=== PATIENT | female | born 1995 | race African-American/Black ===

== ENCOUNTER 2016-08-11 09:03 | Emergency (ER) | payer OTHER ==
[~2016-08-11] VITALS: Ht 170.2 cm; Wt 99.8 kg
[~2016-08-11 09:03] MED LIST: AUGMENTIN 875-1 EACH PO; DOXYCYCLINE HY100 M2 PO; PERCOCET 5-3251 EACH PO
--- NOTE | 2016-08-11 09:18 | ED GENERAL ADULT ---
History of Present Illness General Chief Complaint: General Adult Stated Complaint: CELIA GREEN AFTER TAKING ALEVE THIS MORNING Source: patient Exam Limitations: no limitations Vital Signs & Intake/Output Vital Signs & Intake/Output Vital Signs Date Time Temp Pulse Resp B/P Pulse O2 O2 Flow FiO2 Ox Delivery Rate 08/11 0926 126/68 08/11 0909 96.6 101 18 160/89 97 Room Air Allergies Coded Allergies: No Known Allergies (05/12/16) Reconcile Medications Amoxicillin/Potassium Clav (Augmentin 875-125 Tablet) 875 MG-125 MG TABLET 1 TAB PO BID CELLULITIS Doxycycline Hyclate 100 MG CAPSULE 1 CAP PO BID ANTIBIOTIC, INFECTION ( Reported) Oxycodone HCl/Acetaminophen (Percocet 5-325 MG Tablet) 5 MG-325 MG TABLET 1 TAB PO Q4-6 PRN PAIN Triage Note: 21 Y/O FEMALE C/O FEELING DIZZY SINCE WAKING YESTERDAY MORNING. TOOK 6 TABS ALEVE FROM 0800 YESTERDAY TO BEDTIME LAST NIGHT AND IS WORRIED SHE TOOK TOOK TOO MUCH. C/O INTERMITTENT HEADACHE. DENIES N/V/D. NORMAL APPETITE/PO INTAKE PER PT. AFEBRILE. Triage Nurses Notes Reviewed? yes Onset: Abrupt Duration: day(s): (1) Timing: single episode today Injury Environment: home Severity: mild No Modifying Factors: none Associated Symptoms: lightheadedness : No Patient currently breastfeeds: No HPI: This is a 21-year-old female who presents with some shakiness and lightheadedness after taking Aleve throughout the day yesterday. She states she took approximately 6 pills from 7:30 AM until the evening. No abdominal pain or discomfort. She states initially the morning she was having little bit of headache and nausea. She admits to drinking 3 cups of headache C mixed in with red bull throughout the day with a friend. She thought that everything was fine but wanted to make sure this morning. Patient denies drinking on a regular basis. She states she doesn't know why she was drinking but was doing so at home with a friend. Denies any drug use. Denies any chance of . She essentially active but uses protection and has recently had the dental implanted. No chest pain or palpitations. No cough or shortness of breath. Family history of hypertension. Past History Travel History Traveled to [place] past 21 day No Medical History Any Pertinent Medical History? see below for history Neurological: NONE EENT: NONE Cardiovascular: NONE Respiratory: NONE Gastrointestinal: NONE Hepatic: NONE Renal: NONE Musculoskeletal: NONE Psychiatric: NONE Endocrine: NONE Blood Disorders: NONE Cancer(s): NONE Surgical History Surgical History: non-contributory Psychosocial History What is your primary language Faroese Tobacco Use: Never used Family History Hx Contributory? No Review of Systems Review of Systems Constitutional: Denies: chills, fever. EENTM: Reports: no symptoms. Respiratory: Denies: cough, short of breath. Cardiovascular: Denies: chest pain, palpitations. GI: Reports: nausea. Denies: abdominal pain, vomiting. Genitourinary: Reports: no symptoms. Musculoskeletal: Reports: no symptoms. Skin: Reports: no symptoms. Neurological/Psychological: Reports: see HPI (SHAKINESS), anxiety. Hematologic/Endocrine: Denies: bruising, bleeding, polyuria, polydipsia. Immunologic/Allergic: Reports: no symptoms. All Other Systems: Reviewed and Negative Physical Exam Physical Exam General Appearance: well developed/nourished, alert, awake, anxious, mild distress, obese Head: atraumatic Eyes: Bilateral: normal appearance, PERRL, EOMI. Ears, Nose, Throat: normal pharynx, hearing grossly normal Neck: normal inspection, supple, full range of motion Respiratory: normal breath sounds, chest non-tender, no respiratory distress Cardiovascular: regular rate/rhythm Peripheral Pulses: 2+ radial (R), 2+ radial (L) Gastrointestinal: normal bowel sounds, soft, non-tender Extremities: normal inspection, normal capillary refill, normal range of motion, no edema Neurologic/Psych: no motor/sensory deficits, awake, alert, normal gait Core Measures ACS in differential dx? No CVA/TIA Diagnosis: No Severe Sepsis Present: No Septic Shock Present: No Progress Differential Diagnoses I considered the following diagnoses in my evaluation of the patient: [ELEVATED BLOOD PRESSURE, REACTION TO DRINKING LIQUOR WITH RED BULL, HANGOVER] Plan of Care: manual bp 126/68 Patient advised to avoid Patricia and red bull especially in combination. She will monitor her blood pressure outpatient over the next few weeks and follow up with her doctor in the office. Initial ED EKG: none Departure Departure Time of Disposition: 924 Disposition: HOME OR SELF CARE Condition: Stable Clinical Impression Primary Impression: Shakiness Referrals: PATIENT HAS NO PRIMARY CARE DR (PCP/Family) Additional Instructions: Avoid drinking alcohol especially in combination with red bull. Please check your blood pressure outpatient over the next few weeks. Follow-up with your doctor in the office for any concerns. Return as needed. Departure Forms: Customer Survey General Discharge Information Critical Care Note Critical Care Note Critical Care Time: non-applicable
[2016-08-11 09:26] VITALS: BP 126/68
== END 2016-08-11 09:28 ==
LOC: ERH 09:03
DX: R25.1 Tremor, unspecified (principal); R42 Dizziness and giddiness
CPT/HCPCS: 99282

== ENCOUNTER 2016-12-07 22:59 | Emergency (ER) | payer OTHER ==
[~2016-12-07] VITALS: Ht 170.2 cm; Wt 108.9 kg
[2016-12-07 23:02] VITALS: BP 124/79
--- NOTE | 2016-12-08 00:06 | ED GI/GU/ABDOMINAL COMPLAINT ---
History of Present Illness General Chief Complaint: Nausea, Vomiting, Diarrhea Stated Complaint: VOMITING,ABD PAIN, REDDNESS AROUND EYES Source: patient, old records Exam Limitations: no limitations Vital Signs & Intake/Output Vital Signs & Intake/Output Vital Signs Date Time Temp Pulse Resp B/P B/P Pulse O2 O2 Flow FiO2 Mean Ox Delivery Rate 12/07 2302 97.3 90 18 124/79 98 Room Air ED Intake and Output 12/08 0000 12/07 1200 Intake Total Output Total Balance Patient 240 lb Weight Weight Reported by Patient Measurement Method Allergies Coded Allergies: No Known Allergies (05/12/16) Reconcile Medications Amoxicillin/Potassium Clav (Augmentin 875-125 Tablet) 875 MG-125 MG TABLET 1 TAB PO BID CELLULITIS Doxycycline Hyclate 100 MG CAPSULE 1 CAP PO BID ANTIBIOTIC, INFECTION ( Reported) Famotidine (Pepcid) 20 MG TABLET 1 TAB PO BID PRN PAIN Ondansetron (Zofran Odt) 4 MG TAB.RAPDIS 1 TAB SL TID PRN NAUSEA Oxycodone HCl/Acetaminophen (Percocet 5-325 MG Tablet) 5 MG-325 MG TABLET 1 TAB PO Q4-6 PRN PAIN Triage Note: PT TO TRIAGE WITH C/O LUQ ABD PAIN 6/10 ON/OFF, NAUSEA, 1 EPISODE OF VOMITING, AND BROKE UP IN FACIAL RASH S/P VOMITING AROUND 1PM. LAST NORMAL BM YESTERDAY. VSS. PT AFEBRILE. PT ON DEPO BIRHT CONTROL. Triage Nurses Notes Reviewed? yes LMP (ages 10-50): 2 WEEKS AGO ? N Is pt currently ? No Onset: Abrupt Duration: hour(s): (11), intermittent Timing: recent history Quality/Severity: aching, burning Severity Numbers: 5 Location: left upper quadrant Radiation: no radiation Activities at Onset: eating ([employer]) No Modifying Factors: none Associated Symptoms: nausea/vomiting (X 1) HPI: 21-year-old female with no medical history presents to ER for evaluation complaining of intermittent sharp left upper quadrant abdominal pain since 1:30 today after eating [employer]. She states she ate the calyces vomited once and the pain began to left upper quadrant. Pain is nonradiating she took Aleve without improvement and attempted to eat some soup around 8:30 this evening however states she had no appetite. She denies any change in her bowel movements no diarrhea. Her last menstrual cycle was 2 weeks ago normal she denies any dysuria urgency frequency no sick contacts or recent travel or antibiotic use no fever or chills. She denies tobacco alcohol or drug use. (SOBEIDA VEGA) Past History Travel History Traveled to [place] past 21 day No Medical History Any Pertinent Medical History? none Neurological: NONE EENT: NONE Cardiovascular: NONE Respiratory: NONE Gastrointestinal: NONE Hepatic: NONE Renal: NONE Musculoskeletal: NONE Psychiatric: NONE Endocrine: NONE Blood Disorders: NONE Cancer(s): NONE Surgical History Surgical History: non-contributory Psychosocial History What is your primary language Setswana Tobacco Use: Never used Family History Hx Contributory? No (SOBEIDA VEGA) Review of Systems Review of Systems Constitutional: Reports: see HPI. All Other Systems: Reviewed and Negative Comments Review of systems: See HPI, All other systems negative. Constitutional, no chills no fever, no malaise HEENT: no sore throat no congestion Cardiovascular: No chest pain , no palpitation Skin: no rashes, no change in skin Respiratory: No dyspnea no cough no sputum GI: nausea vomiting, no diarrhea, no bloating/constipation : No dysuria No hematuria, no frequency, no discharge Muscle skeletal: No joint pain, no joint swelling, no back pain, no neck pain, Neurologic: No numbness , no headache Psych: No stress Heme/endocrine: No bruising no bleeding Immunology: No lymphadenopathy (SOBEIDA VEGA) Physical Exam Physical Exam General Appearance: well developed/nourished, no apparent distress, alert Gastrointestinal: soft, tenderness (LUQ) Comments: Well-developed well-nourished person in no acute distress HEENT: Normal EENT exam; PERRL, EOMI, HEAD is atraumatic. moist mucous membranes. Neck: Supple, normal range of motion Back: Nontender, no CVA tenderness. Full range of motion Cardiovascular: Regular rate and rhythms no murmurs rubs Respiratory: No respiratory distress. Patient speaking in full complete sentences. Breath sounds clear to auscultation bilaterally: NO W/R/R Abdomen: Soft, LUQ tender Rest of abd is nontender, neg murphys sign, nondistended, no appreciable organomegaly. Normal bowel sounds. No rebound/ guarding, Extremity: No edema, full range of motion of extremities Neuro: Alert oriented x3, motor sensory normal. There were no obvious focal neurologic abnormalities. Skin: No appreciable rash on exposed skin, skin is warm and dry. Psych: Mood and affect is normal, memory and judgment is normal. Core Measures ACS in differential dx? No Severe Sepsis Present: No Septic Shock Present: No (RENEE MENDEZ,SOBEIDA) Progress Differential Diagnosis: appendicitis, biliary colic, bowel obstruction, colon cancer, cholecystitis, ectopic , gastritis, hepatitis, inflamm bowel dis, intrauterine , kidney stone, ovarian cyst, pancreatitis, PID/ cervicitis, perforated viscous, SBO, threatened AB, UTI/pyelo Plan of Care: Orders Procedure Date/time Status LIPASE 12/08 0002 Active HUMAN BETA HCG SCREEN 12/08 1 Active COMPREHENSIVE METABOLIC PANEL 12/08 0002 Active CBC WITHOUT DIFFERENTIAL 12/08 0002 Complete AMYLASE 12/08 0002 Active Current Medications Sig/Sarita Start time Last Medication Dose Stop Time Status Admin Famotidine 20 MG ONCE ONE 12/08 114 UNVr (Pepcid) 12/09 115 Ibuprofen 800 MG ONCE ONE 12/08 114 UNVr (Motrin) 12/09 115 Metoclopramide HCl 10 MG ONCE ONE 12/08 114 UNVr (Reglan) 12/09 115 Laboratory Tests 12/08/16 0025: Sodium Pending, Potassium Pending, Chloride Pending, Carbon Dioxide Pending, Anion Gap Pending, BUN Pending, Creatinine Pending, BUN/Creatinine Ratio Pending , Glucose Pending, Calcium Pending, Total Bilirubin Pending, AST Pending, ALT Pending, Alkaline Phosphatase Pending, Total Protein Pending, Albumin Pending, Globulin Pending, Albumin/Globulin Ratio Pending, Amylase Pending, Lipase Pending, Total Beta HCG NEGATIVE, CBC w Diff NO MAN DIFF REQ, RBC 4.56, MCV 81.2 , MCH 26.3 L, RDW 14.5, MPV 8.6, Gran % 63.3, Lymphocytes % 29.2, Monocytes % 5.6, Eosinophils % 1.4, Basophils % 0.5, Absolute Granulocytes 6.6 H, Absolute Lymphocytes 3.0, Absolute Monocytes 0.6, Absolute Eosinophils 0.1, Absolute Basophils 0, PUBS MCHC 32.3 L Labs ordered old records reviewed patient is declining IV fluids or IV pain medication Pepcid Zofran she is also declining by mouth medication ON repeat eval pt resting in nad, she has had No episodes of dry heaving or vomiting here in the department. I discussed with the patient at length all of their results. I had an extensive conversation regarding need for close follow up with their primary care physician this week as well as return precautions. I answered all of their questions, they feel comfortable with the plan and follow-up care. I discussed with the patient/family the medications that they will receive. I gave them signs and symptoms that could indicate an adverse reaction. I have advised them to limit their activities until they can see how they respond to the medication. (SOBEIDA VEGA) Initial ED EKG: none (SOBEIDA VEGA) Departure Departure Disposition: HOME OR SELF CARE Condition: Stable Clinical Impression Primary Impression: Gastritis Referrals: PATIENT HAS NO PRIMARY CARE DR (PCP/Family) Additional Instructions: [place] diet clear liquids advance as tolerated. Zofran if needed for nausea Pepcid as directed Tylenol Motrin for pain. Follow up with her primary care physician tomorrow return to the ER with any concerns Departure Forms: Customer Survey General Discharge Information Prescriptions: Current Visit Scripts Ondansetron (Zofran Odt) 1 TAB SL TID PRN NAUSEA #10 TAB Famotidine (Pepcid) 1 TAB PO BID PRN PAIN #14 TAB (SOBEIDA VEGA) PA/HOME HEALTH RN Co-Sign Statement Statement: ED Attending supervision documentation- I saw and evaluated the patient. I have also reviewed all the pertinent lab results and diagnostic results. I agree with the findings and the plan of care as documented in the PA's/HOME HEALTH RN's documentation. X I have reviewed the ED Record and agree with the PA's/HOME HEALTH RN's documentation. [] Additions or exceptions (if any) to the PAs/HOME HEALTH RN's note and plan are summarized below: [] (ODESSA BEARD,ROSEANNE)
[2016-12-08] MEDS ORDERED: PEPCID20 M1 PO (00:27)
[2016-12-08] MEDS ORDERED: ZOFRAN ODT4 M1 SL (00:27)
[2016-12-08 00:37] LABS: ABSOLUTE BASOPHIL COUNT 0 /CUMM (0.0-0.2); ABSOLUTE EOSINOPHIL COUNT 0.1 /CUMM (0.0-0.7); ABSOLUTE GRANULOCYTE CT 6.6 /CUMM (1.4-6.5); ABSOLUTE MONOCYTE COUNT 0.6 /CUMM (0.10-0.60); BASOPHIL % 0.5 % (0.0-2.0); EOSINOPHIL % 1.4 % (0-5); GRANULOCYTE % 63.3 % (42.2-75.2); MEAN CORPUSCULAR HGB 26.3 PG (27.0-31.0); MEAN CORPUSCULAR HGB CONC 32.3 G/DL (33.0-37.0); MEAN CORPUSCULAR VOLUME 81.2 FL (81.0-99.0); MEAN PLATELET VOLUME 8.6 FL (7.4-10.4); PLATELET COUNT 270 /CUMM (130-400); RBC DISTRIBUTION WIDTH 14.5 % (11.5-14.5); RED BLOOD CELL CT 4.56 /CUMM (4.20-5.40); WHITE BLOOD CELL COUNT 10.4 /CUMM (4.8-10.8)
== END 2016-12-08 01:25 ==
LOC: ERH 22:59
PROVIDERS: Physician Assistant Medical
DX: K29.70 Gastritis, unspecified, without bleeding (principal)
CPT/HCPCS: J3101